=== PATIENT | female | born 1935 | race Caucasian/White ===

== ENCOUNTER 2022-01-13 09:58 | Day surgery (SDC) | payer MEDICARE, OTHER ==
[~2022-01-13] VITALS: Ht 160 cm; Wt 65.3 kg
[~2022-01-13 09:58] MED LIST: ASPI325EC PO; Aspir 8181 MG PO; CEPH500 PO; FISH OIL 1,2001 EAC4 PO; LATA.005SO BOTHEYES; Norco 5-325 Ta1 EACH PO; TIMDOROPSO BOTHEYES; VIT1CAPS12
--- NOTE | 2022-01-13 10:29 | NUR ---
01/13/22 1029 Jose Joseph CALL LIGHT WITHIN RECH. NELLY AT 1025 AND SUSANA AT 1028 IN THE LEFT EYE
--- NOTE | 2022-01-13 11:37 | NUR ---
01/13/22 1137 CAMPOS EASLEY WATCH NECKLACE RETURNED TO PT
== END 2022-01-13 11:40 | disposition home or self-care (01) ==
LOC: ORSCSDS 09:58
PROVIDERS: Ophthalmology
PROC: 08RK3JZ Replacement of Left Lens with Synthetic Substitute, Percutaneous Approach (ICD-10-PCS; principal; 2022-01-13 11:30)
DX: H25.13 Age-related nuclear cataract, bilateral (principal); I10 Essential (primary) hypertension; H35.30 Unspecified macular degeneration; H40.9 Unspecified glaucoma; H34.8112 Central retinal vein occlusion, right eye, stable; Z79.82 Long term (current) use of aspirin; Z79.899 Other long term (current) drug therapy
CPT/HCPCS: J2001; J2250; J3010; J3301; J7040; V2632

== ENCOUNTER 2022-02-03 10:23 | Day surgery (SDC) | payer MEDICARE, OTHER ==
[~2022-02-03] VITALS: Ht 160 cm; Wt 65.1 kg
--- NOTE | 2022-02-03 10:50 | NUR ---
02/03/22 1050 Ana Cristina Olivarez AT 1038 PLEDGET AT 1040
== END 2022-02-03 12:11 | disposition home or self-care (01) ==
LOC: ORSCSDS 10:23
PROVIDERS: Ophthalmology
PROC: 08RJ3JZ Replacement of Right Lens with Synthetic Substitute, Percutaneous Approach (ICD-10-PCS; principal; 2022-02-03 11:30)
DX: H25.11 Age-related nuclear cataract, right eye (principal); I10 Essential (primary) hypertension; Z79.82 Long term (current) use of aspirin; H40.9 Unspecified glaucoma
CPT/HCPCS: J2001; J2250; J3010; J3301; J7040; V2632